=== PATIENT | male | born 1965 | race Caucasian/White ===

== ENCOUNTER → 2017-03-12 | Outpatient (CLI) | payer BC | LOC: MRI 08:50 | DX: C20 Malignant neoplasm of rectum (principal); C77.2 Secondary and unspecified malignant neoplasm of intra-abdominal lymph nodes; C78.7 Secondary malignant neoplasm of liver and intrahepatic bile duct; R90.89 Other abnormal findings on diagnostic imaging of central nervous system; J32.3 Chronic sphenoidal sinusitis | CPT/HCPCS: 70553; A9577 ==

== ENCOUNTER → 2017-03-19 | Outpatient (CLI) | payer BC | LOC: KOH-I 11:18 | DX: G08 Intracranial and intraspinal phlebitis and thrombophlebitis (principal); J32.3 Chronic sphenoidal sinusitis | CPT/HCPCS: 70543; A9577 ==

== ENCOUNTER → 2020-11-28 | Outpatient (CLI) | payer BC, MEDICARE, OTHER ==
[~2020-11-28] MED LIST: FLAGYL500 MG PO; NAPROSYN EC 50500 MG PO
[2020-11-28 12:08] LABS: HEMOGLOBIN 13.9 gm/dl (14.0-17.5); RED BLOOD COUNT 4.16 M/UL (4.20-5.50); WHITE BLOOD COUNT 3.7 K/UL (4.5-11.0)
== END ==
LOC: LAB 10:23
PROVIDERS: Internal Medicine Hematology & Oncology
DX: C21.8 Malignant neoplasm of overlapping sites of rectum, anus and anal canal (principal)
CPT/HCPCS: 36415; 85025

== ENCOUNTER → 2020-12-05 | Outpatient (CLI) | payer BC, MEDICARE, OTHER ==
[2020-12-05 11:16] LABS: HEMOGLOBIN 14.1 gm/dl (14.0-17.5); RED BLOOD COUNT 4.36 M/UL (4.20-5.50); WHITE BLOOD COUNT 3.4 K/UL (4.5-11.0)
== END ==
LOC: LAB 10:28
PROVIDERS: Internal Medicine Hematology & Oncology
DX: C21.8 Malignant neoplasm of overlapping sites of rectum, anus and anal canal (principal)
CPT/HCPCS: 36415; 85025

== ENCOUNTER 2021-09-01 00:32 | Emergency (ER) | payer BC, MEDICARE, OTHER ==
[2021-09-01 01:45] LABS: HEMOGLOBIN 10.4 gm/dl (14.0-17.5); RED BLOOD COUNT 3.25 M/UL (4.20-5.50)
[2021-09-01 01:51] LABS: WHITE BLOOD COUNT 0.7 K/UL (4.5-11.0)
[2021-09-01 02:20] LABS: BUN/CREATININE RATIO 36 (0-10)
[2021-09-01 14:38] LABS: ACINETOBACTER BAUMANNII Not Detected (Negative); CANDIDA ALBICANS Not Detected (Negative); CANDIDA KRUSEI Not Detected (Negative); CANDIDA TROPICALIS Not Detected (Negative); ENTEROCOCCUS Not Detected (Negative); HAEMOPHILUS INFLUENZAE Not Detected (Negative); KLEBSIELLA OXYTOCA Not Detected (Negative); KLEBSIELLA PNEUMONIAE Not Detected (Negative); KPC-CARBAPENEM-RESISTANCE GENE Not Detected (Negative); PROTEUS Not Detected (Negative); PSEUDOMONAS AERUGINOSA Not Detected (Negative); SERRATIA MARCESANS Not Detected (Negative); STAPHYLOCOCCUS Not Detected (Negative); STAPHYLOCOCCUS AUREUS Not Detected (Negative); STREP AGALACTIAE (GROUP B) Not Detected (Negative); STREP PYOGENES (GROUP A) Not Detected (Negative); STREPTOCOCCUS Not Detected (Negative); mecA (METHICILLIN RESIST GENE Not Detected (Negative); vanA/B (VANCOMYCIN RESIST GENE Not Detected (Negative)
[2021-09-01 17:28] LABS: ESCHERICHIA COLI DETECTED (Negative)
== END 2021-09-01 11:35 | disposition short-term general hospital (02) ==
LOC: ER1 00:32
PROVIDERS: Family Medicine; Student in an Organized Health Care Education/Training Program
DX: A41.9 Sepsis, unspecified organism (principal); E86.0 Dehydration; R18.8 Other ascites; J90 Pleural effusion, not elsewhere classified; R17 Unspecified jaundice; C18.9 Malignant neoplasm of colon, unspecified; C78.7 Secondary malignant neoplasm of liver and intrahepatic bile duct; J18.9 Pneumonia, unspecified organism; Z20.822 Contact with and (suspected) exposure to COVID-19
CPT/HCPCS: 71045; 80053; 81001; 82140; 82550; 82553; 83605; 83690; 83874; 84484; 85025; 85610; 87040; 87077; 87150; 87186; 93005; 96374; 96375; 99285; J1335; J7030; Q9967; U0002